=== PATIENT | female | born 1975 | race Caucasian/White ===

== ENCOUNTER → 2016-06-25 | Outpatient (CLI) | payer MEDICARE, OTHER | END | disposition home or self-care (01) | LOC: CFH 07:31 | PROVIDERS: ATTEND Nurse Practitioner Family | DX: Z12.31 Encounter for screening mammogram for malignant neoplasm of breast (principal) | CPT/HCPCS: G0202 ==

== ENCOUNTER 2016-12-31 06:07 | Day surgery (SDC) | payer OTHER ==
[2016-12-28 08:14] VITALS: BP 128/86
[2016-12-28 08:45] LABS: HEMATOCRIT 44.4 % (34.6-47.8); HEMOGLOBIN 14.8 g/dL (11.7-16.4); WHITE BLOOD COUNT 10.1 x10^3/uL (3.4-10)
[2016-12-28 09:03] LABS: ASPARTATE AMINO TRANSFERASE 22 U/L (15-37); BLOOD UREA NITROGEN 11 mg/dL (7-18)
[~2016-12-31] VITALS: Ht 172.7 cm; Wt 61.0 kg
[~2016-12-31 06:07] MED LIST: BUSP15TA PO; DESV100T16 PO; FEOSOL PO; LAMO100T PO; ROPI2TAB4 PO
[2016-12-31] MEDS ORDERED: LIDOCAINE 1%, 2ML ONE (06:22)
[2016-12-31] MEDS ORDERED: MIDAZOLAM 1 MG/ML, 2ML ONE (06:23)
[2016-12-31] MEDS ORDERED: FENTANYL PF 100 MCG/2ML ONE (06:24)
[2016-12-31] MEDS ORDERED: GLYCOPYRROLATE 0.2MG/1ML, 5ML ONE (06:27)
[2016-12-31] MEDS ORDERED: ROCURONIUM 10 MG/ML ONE (06:27)
[2016-12-31] MEDS ORDERED: CEFAZOLIN 1,000 MG ONE (06:27)
[2016-12-31] MEDS ORDERED: DEXAMETHASONE 4 MG/ML, 1ML ONE (06:27)
[2016-12-31] MEDS ORDERED: ONDANSETRON 2MG/ML, 2ML ONE (06:27)
[2016-12-31] MEDS ORDERED: NEOSTIGMINE 1 MG/ML, 10ML ONE (06:27)
[2016-12-31] MEDS ORDERED: SUCCINYLCHOLINE 20 MG/ML, 10ML ONE (06:27)
[2016-12-31] MEDS ORDERED: PROPOFOL 10 MG/ML, 20ML ONE (06:27)
[2016-12-31] MEDS ORDERED: HYDROmorphone 1 MG/ML, 1ML ONE (06:27)
[2016-12-31] MEDS ORDERED: LACTATED RINGERS 1,000 ML IV SCH (06:43)
[2016-12-31] MEDS ORDERED: LIDOCAINE 1%, 2ML SQ PRN (07:00)
[2016-12-31] MEDS ORDERED: BUPIVACAINE/PF 0.25% ONE (07:02)
[2016-12-31] MEDS ORDERED: VASOPRESSIN 20 UNIT/ML, 1ML ONE (07:04)
[2016-12-31 07:14] LABS: HCG UR LOT HCG7030192
[2016-12-31 07:26] LABS: HCG UR OBC PASS
[2016-12-31] MEDS ORDERED: LIDOCAINE GEL 2%, 5ML ONE (08:11)
[2016-12-31] MEDS ORDERED: EPHEDRINE 50 MG/ML, 1ML ONE (08:35)
[2016-12-31] MEDS ORDERED: MEPERIDINE/PF 25MG/0.5ML IVPush PRN (09:00)
[2016-12-31] MEDS ORDERED: HYDROcodone/APAP 7.5-325MG/15ML UDC PO PRN (09:00)
[2016-12-31] MEDS ORDERED: ACETAMINOPHEN 325 MG TABLET PO PRN (09:00)
[2016-12-31] MEDS ORDERED: FENTANYL PF 100 MCG/2ML IV PRN (09:00)
[2016-12-31] MEDS ORDERED: PROMETHAZINE 25 MG/ML, 1ML IV PRN (09:00)
[2016-12-31] MEDS ORDERED: OXYcodone 5 MG/5 ML ORAL.SOL UDC PO PRN (09:00)
[2016-12-31] MEDS ORDERED: HYDROmorphone 1 MG/ML, 1ML IV PRN (09:00)
[2016-12-31] MEDS ORDERED: ONDANSETRON 2MG/ML, 2ML IVPush PRN (09:00)
[2016-12-31] MEDS ORDERED: KETOROLAC 30 MG/1 ML ONE (10:03)
== END 2016-12-31 10:35 ==
LOC: OUT 06:07
PROVIDERS: ATTEND Obstetrics & Gynecology
DX: N93.8 Other specified abnormal uterine and vaginal bleeding (principal); N92.6 Irregular menstruation, unspecified; D64.9 Anemia, unspecified; N84.0 Polyp of corpus uteri; F41.9 Anxiety disorder, unspecified; Z98.890 Other specified postprocedural states; Z87.01 Personal history of pneumonia (recurrent)
CPT/HCPCS: 36415; 58558; 80053; 81003; 81025; 84703; 85025; 88305; J0330; J0690; J1100; J1170; J1885; J2250; J2405; J2704; J2710; J3010; J3490